=== PATIENT | female | born 1960 | race Caucasian/White ===

== ENCOUNTER 2016-12-26 01:42 | Emergency (ER) | payer BC ==
[~2016-12-26] VITALS: Ht 157.5 cm; Wt 66.9 kg
[~2016-12-26 01:42] MED LIST: Aquasol-A,Vitamin A PO; BORAGE OIL PO; Biotin PO; Diovan PO; Duragesic TD; Flexeril PO; IODINE TP; Motrin PO; OMEGA PO; Percocet 5/325,Endoc PO; Vitamin B Complex PO; [UNRECOGNIZED DRUG - REMARK] TP
[2016-12-26 02:55] LABS: ADD MIUA? YES; BILIRUBIN NEGATIVE; BLOOD LARGE; COLOR YELLOW ((YELLOW)); GLUCOSE (STRIP) NEGATIVE; KETONES NEGATIVE; LEUKOCYTES TRACE; NITRITE NEGATIVE; PROTEIN (STRIP) 30; SPECIFIC GRAVITY 1.028 (1.000-1.030); UROBILINOGEN 0.2 MG/DL (0.2-1.0)
[2016-12-26 03:01] LABS: BACTERIA NONE SEEN /HPF; EPITHELIAL CELLS RARE /HPF; HYALINE CASTS 0-5 /LPF; MUCUS 2+ /LPF; RED BLOOD CELLS TNTC /HPF (0-5); UCUL ADDED? YES; WHITE BLOOD CELLS 0-5 /HPF (0-5)
[2016-12-26 03:02] LABS: CHLORIDE 107 mEq/L (99-109); POTASSIUM 4.5 mEq/L (3.7-5.4); SODIUM 140 mEq/L (136-147)
[2016-12-26 03:04] LABS: GLUCOSE 118 mg/dL (70-99)
[2016-12-26 03:05] LABS: ANION GAP 10 MEQ/L (2-14)
[2016-12-26 03:06] LABS: TOTAL BILIRUBIN 0.3 mg/dL (0.0-1.0)
[2016-12-26 03:08] LABS: ALKALINE PHOSPHATASE 62 IU/L (3-129); GFR ESTIMATE (CALCULATED) 54 mL/min/
[2016-12-26 03:09] LABS: UREA NITROGEN (BUN) 38 mg/dL (9-23)
[2016-12-26 03:11] LABS: LIPASE 19 U/L (1.0-51.0)
[2016-12-26 03:19] LABS: HEMATOCRIT 36.2 % (36.0-46.0); MCH 31.5 PG (29.0-34.0); MCHC 33.1 G/DL (30.0-36.0); MEAN PLAT.VOLUME 8.5 uM^3 (9.5-12.4); PLATELET COUNT 273 K/uL (156-360); RBC DIS.WIDTH-CV 12.1 % (11.8-14.6); RBC DIS.WIDTH-SD 42.1 % (39-53); RED BLOOD COUNT 3.81 M/uL (3.80-5.20); WHITE BLOOD COUNT 8.9 K/uL (4.1-10.2)
[2016-12-26] MEDS ORDERED: FLOMAX0.4 MG PO (05:06)
[2016-12-26] MEDS ORDERED: TORADOL10 MG PO (05:06)
[2016-12-26] MEDS ORDERED: CEFPODOXIME PR100 MG PO (05:06)
[2016-12-26] MEDS ORDERED: ZOFRAN8 MG PO (05:06)
[2016-12-26 06:15] VITALS: BP 149/92
== END 2016-12-26 06:19 | disposition home or self-care (01) ==
LOC: EME 01:42
PROVIDERS: Emergency Medicine
DX: N13.2 Hydronephrosis with renal and ureteral calculous obstruction (principal); E86.0 Dehydration; I10 Essential (primary) hypertension; Z87.442 Personal history of urinary calculi; Z88.6 Allergy status to analgesic agent
CPT/HCPCS: 74176; 80053; 81003; 83690; 85027; 87086; 99281; 99285; J0692; J1885; J2405; J7030; J7050